=== PATIENT | male | born 1980 | race Hispanic/Latino ===

== ENCOUNTER 2020-03-29 13:17 | Emergency (ER) | payer BC ==
[~2020-03-29 13:17] MED LIST: Sodium Chloride 0.9% 1,000 ML BAG ONE
[2020-03-29 14:32] LABS: #Lymphocytes 1.9 thou/uL (1.20-3.40); #Monocytes 0.6 thou/uL (0.11-0.59); %Basophils 0.3 % (0.0-1.0); %Eosinophils 0.5 % (0.0-10.0); %Lymphocytes 24.8 % (21.0-51.0); %Monocytes 8.1 % (0.0-10.0); %Neutrophils 66.2 % (42.0-75.0); Hemoglobin 16.2 g/dL (14.0-18.0); Mean Corpuscular HGB CONC 32.9 g/dL (32.0-36.0); Mean Corpuscular Volume 88.1 fL (78.0-98.0); Mean Platelet Volume 7.6 fL (7.4-10.4); Platelet Count 288 thou/uL (130-400); RBC Distribution Width 11.6 % (11.5-14.5); Red Blood Cell (RBC) Count 5.58 mill/uL (4.70-6.10); White Blood Cell (WBC) Count 7.6 thou/uL (4.8-10.8)
[2020-03-29 14:39] LABS: ALT (SGPT) 51 U/L (8-55); AST (SGOT) 51 U/L (5-34); Alkaline Phosphatase 67 U/L (40-110); Anion Gap 19 mmol/L (10-20); BUN (Urea Nitrogen) 12 mg/dL (8.9-20.6); Bilirubin, Total 0.5 mg/dL (0.2-1.2); Calc. Creatinine Clearance 0 mL/min (70-130); Calcium 8.3 mg/dL (7.8-10.44); Carbon Dioxide 23 mmol/L (22-29); Chloride 97 mmol/L (98-107); Globulin 3.6 g/dL (2.4-3.5); Glucose 172 mg/dL (70-105); Potassium 4.4 mmol/L (3.5-5.1); Protein, Total 7.6 g/dL (6.0-8.3); Sodium 135 mmol/L (136-145)
--- NOTE | 2020-03-29 15:29 | RAD ---
EXAM: CHEST TWO VIEWS 03/29/2020 3:26 PM HISTORY: Shortness of breath and history of Covid positive diagnosis COMPARISON: None. FINDINGS: Lungs: There are hazy groundglass airspace opacities within the left midlung, left lower lobe and ri ght midlung suspicious for atypical pneumonia. Heart: Normal in size and contour. Pulmonary Vessels: Normal. Costophrenic Angles: Clear. Pneumothorax: None. Osseous Structures: Intact. Additional Findings: None. IMPRESSION: Findings suspicious for bilateral pneumonia.
[2020-03-29] MEDS ORDERED: Sodium Chloride 0.9% 250 ML 250 ML ONE (15:38)
[2020-03-29] MEDS ORDERED: Sodium Chloride 0.9% 100 ML ONE (15:38)
[2020-03-29] MEDS ORDERED: cefTRIAXone\\ROCEPHIN 2 GM VIAL ONE (15:38)
[2020-03-29] MEDS ORDERED: Azithromycin 500 MG VIAL ONE (15:38)
[2020-03-29] MEDS ORDERED: Enoxaparin Sodium 40 MG/0.4 ML SYRINGE ONE (15:38)
== END 2020-03-29 18:37 | disposition short-term general hospital (02) ==
LOC: MADERS 13:17
DX: U07.1 COVID-19 (principal); J12.89 Other viral pneumonia; R09.02 Hypoxemia
CPT/HCPCS: 71046; 80053; 83605; 83880; 84484; 85025; 85379; 87804; 93005; 96365; 96367; 96372; J0456; J0696; J1650; J3490; J7050